=== PATIENT | female | born 1945 | race Caucasian/White ===

== ENCOUNTER 2017-01-08 10:31 | Emergency (ER) | payer OTHER, BC ==
[~2017-01-08] VITALS: Ht 154.9 cm; Wt 96.9 kg
[~2017-01-08 10:31] MED LIST: ADULT LOW DOSE81 M1 PO; AMBIEN CR12.5 MG PO; AMBIEN10 MG PO; ASPIR-LOW81 MG PO; Caltrate 600+D Plus PO; HYDROCHLOROTH12.5 M3 PO; HYDROCHLOROTHIA25 MG PO; LIPITOR10 MG PO; LIPITOR5 MG PO; NASONEX17 GM BOTH NARES; ONE-A-DAY ESSE1 EAC1 PO; PREVACID30 MG PO; THERAGRAN1 TABLET PO; TOPROL XL25 MG PO; TOPROL XL50 MG PO; XARELTO20 MG PO
[2017-01-08 11:50] LABS: ADD MIUA? YES; BILIRUBIN NEGATIVE; BLOOD SMALL; COLOR STRAW ((YELLOW)); GLUCOSE (STRIP) NEGATIVE; KETONES NEGATIVE; LEUKOCYTES NEGATIVE; NITRITE NEGATIVE; PROTEIN (STRIP) NEGATIVE; UROBILINOGEN 0.2 MG/DL (0.2-1.0)
[2017-01-08 11:55] LABS: BACTERIA NONE SEEN /HPF; EPITHELIAL CELLS RARE /HPF; MUCUS TRACE /LPF; RED BLOOD CELLS 0-5 /HPF (0-5); UCUL ADDED? NO; WHITE BLOOD CELLS 0-5 /HPF (0-5)
[2017-01-08] MEDS ORDERED: VALIUM5 MG PO (12:41)
[2017-01-08] MEDS ORDERED: LIDODERM 5% P1 PATCH TD (12:41)
[2017-01-08] MEDS ORDERED: PREDNISONE20 MG PO (12:41)
[2017-01-08 13:03] VITALS: BP 145/88
== END 2017-01-08 13:04 | disposition home or self-care (01) ==
LOC: EME 10:31
PROVIDERS: Nurse Practitioner Family
DX: M54.5 Low back pain (principal); M62.838 Other muscle spasm; I10 Essential (primary) hypertension; Z79.01 Long term (current) use of anticoagulants
CPT/HCPCS: 81003; 99281; 99283